=== PATIENT | male | born 1975 | race African-American/Black ===

== ENCOUNTER 2017-01-17 15:35 | Emergency (ER) | payer OTHER ==
[~2017-01-17] VITALS: Ht 171.4 cm; Wt 95.2 kg
--- NOTE | ~2017-01-17 | CR150 ---
[facility] A Service of [facility] RADIOLOGY TEXT RESULTS PATIENT: BAUDILIO TAN LOCATION: [facility] : 79 UNIT #: [id number] AGE: [address]: Jannie Medrano SEX: M ORDER DR: [id number] [facility]. [place], [place] [address] [id number] E MR#: [id number] Acc #: [id number] NAME: BAUDILIO TAN : 1975 SEX: M STUDY DATE/TIME: 01/17/2017 16:18 UNIT: [facility] ROOM: STUDY DESCRIPTION: CR Hip Min 2 Views Lt Attending Physician: Jannie Medrano Pa-C Ordering Physician: Jannie Medrano Pa-C Primary Care Physician: Primary Care Physician No MEDICAL IMAGING REPORT This report is preliminary unless electronic signature is present EXAM AP pelvis with frog view of the left femur and hip. DATE 01/17/2017 HISTORY Lateral and posterior left hip pain after falling down steps today. COMPARISON Left hip radiographs 11/10/2015. FINDINGS Intramedullary nail with proximal interlocking screw is again seen. No evidence of hardware loosening. Old healed midshaft fracture of the left femur redemonstrated. 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 There is mild but symmetric bilateral hip joint space narrowing superiorly. No acute pelvic fracture, hip fracture or hip dislocation seen. On the lateral image of the left femur, the knee joint appears grossly normally aligned. IMPRESSION 1. No acute abnormality of the pelvis or left hip. 2. ORIF changes of the left femur with intramedullary carlitos in place. Old healed left mid femoral fracture. 3. Chronic heterotopic ossification adjacent to the left greater trochanter, unchanged from 11/10/2015. 4. Mild symmetric bilateral hip joint space narrowing. Dictated by... Edith Duvall M.D. [facility] A Service of [facility] RADIOLOGY TEXT RESULTS PATIENT: BAUDILIO TAN LOCATION: [facility] : 79 UNIT #: [id number] AGE: [address]: Jannie Medrano SEX: M ORDER DR: THIS IS AN ELECTRONICALLY VERIFIED REPORT Edith Duvall M.D. at 01/18/2017 8:31 AM RICK/isai TD: 01/18/2017 04:19 JOB #: [id number] MEDICAL IMAGING REPORT Page 1 of 1 COPY
[~2017-01-17 15:35] MED LIST: ADVAIR 500-501 EACH IH; ALBUTEROL17 GM INH; BENZONATATE PO; PHENERGAN VC W120 M1; PHENERGAN VC W120 M1 PO; PREDNISONE PO; ZITHROMAX1 G/PKT PO
== END 2017-01-17 17:05 | disposition home or self-care (01) ==
LOC: CFTX 15:35 → CED 15:35 → CFTX 16:31
DX: S70.02XA Contusion of left hip, initial encounter (principal); W10.9XXA Fall (on) (from) unspecified stairs and steps, initial encounter; Y92.009 Unspecified place in unspecified non-institutional (private) residence as the place of occurrence of the external cause
CPT/HCPCS: 73502; 99284

== ENCOUNTER 2017-02-07 10:46 | Emergency (ER) | payer OTHER ==
[~2017-02-07] VITALS: Ht 170.2 cm; Wt 95.2 kg
--- NOTE | ~2017-02-07 | CT71 ---
[facility] A Service of [facility] RADIOLOGY TEXT RESULTS PATIENT: BAUDILIO TAN LOCATION: [facility] : 79 UNIT #: [id number] AGE: [address]: Misty Jarrell MD SEX: M ORDER DR: [id number] [facility]. [place], [place] [address] [id number] E MR#: [id number] Acc #: [id number] NAME: BAUDILIO TAN : 1975 SEX: M STUDY DATE/TIME: 02/07/2017 13:58 UNIT: [facility] ROOM: STUDY DESCRIPTION: CT Head Wo Contrast Attending Physician: Misty Jarrell M.D. Ordering Physician: Misty Jarrell M.D. Primary Care Physician: Kate Whitmore A.P.R.N. MEDICAL IMAGING REPORT This report is preliminary unless electronic signature is present EXAM Head CT without contrast HISTORY Headache and dizziness after falling in the shower today. TECHNIQUE Axial noncontrast images were obtained from the skull base to the vertex. This CT exam was performed with one or more of the following radiation dose reduction techniques: automatic exposure control, adjustment of mA and/or kV according to patient size, and iterative reconstruction. FINDINGS Ventricular size and configuration are normal. There is no evidence of acute infarct or hemorrhage. There are no extraaxial fluid collections. No mass lesion or mass effect is seen. There are no skull fractures. IMPRESSION Normal noncontrast head CT. Dictated by... Christofer Ortiz M.D. THIS IS AN ELECTRONICALLY VERIFIED REPORT Christofer Ortiz M.D. at 02/15/2017 2:02 PM RLF/damien TD: 02/07/2017 21:02 JOB #: [id number] MEDICAL IMAGING REPORT [facility] A Service of [facility] RADIOLOGY TEXT RESULTS PATIENT: BAUDILIO TAN LOCATION: [facility] : 79 UNIT #: [id number] AGE: [address]: Misty Jarrell MD SEX: M ORDER DR: Page 1 of 1 COPY
== END 2017-02-07 14:46 | disposition home or self-care (01) ==
LOC: CED 10:46
DX: S00.93XA Contusion of unspecified part of head, initial encounter (principal); J42 Unspecified chronic bronchitis; F17.210 Nicotine dependence, cigarettes, uncomplicated; W01.198A Fall on same level from slipping, tripping and stumbling with subsequent striking against other object, initial encounter; Y92.009 Unspecified place in unspecified non-institutional (private) residence as the place of occurrence of the external cause
CPT/HCPCS: 70450; 99284